=== PATIENT | female | born 1965 | race Caucasian/White ===

== ENCOUNTER → 2020-11-24 | Outpatient (CLI) | payer BC ==
[~2020-11-24] MED LIST: AMOX TR-K CLV1 EAC4 PO; ASPIRIN EC81 MG PO; CLOPIDOGREL75 MG PO; CRESTOR5 MG PO; CYCLOBENZAPRINE5 MG PO; FUROSEMIDE20 MG PO; HYDROCODON-ACE1 EAC2 PO; LANSOPRAZOLE30 MG PO; LEVOTHYROXINE150 MCG PO; METOPROLOL TART25 MG PO; NOVOLOG 10100 UNITS/ INJ; ONDANSETRON ODT4 MG PO; QVAR REDIHALE10.6 G1 INH; VITAMIN D21250 MCG PO
== END ==
LOC: SLEEP-COR 10:02
DX: G47.33 Obstructive sleep apnea (adult) (pediatric) (principal)
CPT/HCPCS: 95811

== ENCOUNTER → 2020-12-12 | Day surgery (SDC) | payer BC ==
[~2020-12-12] VITALS: Ht 160 cm; Wt 88.5 kg
[2020-12-12 06:53] LABS: HEMOGLOBIN 12.5 gm/dl (12.3-15.3); RED BLOOD COUNT 3.85 M/UL (4.00-5.10); WHITE BLOOD COUNT 11.1 K/UL (4.5-11.0)
== END | disposition home or self-care (01) ==
LOC: OR 05:15
PROVIDERS: Podiatrist Foot & Ankle Surgery
DX: S82.852A Displaced trimalleolar fracture of left lower leg, initial encounter for closed fracture (principal); E11.51 Type 2 diabetes mellitus with diabetic peripheral angiopathy without gangrene; I25.10 Atherosclerotic heart disease of native coronary artery without angina pectoris; K21.9 Gastro-esophageal reflux disease without esophagitis; G47.30 Sleep apnea, unspecified; J45.909 Unspecified asthma, uncomplicated; F32.A Depression, unspecified; E03.9 Hypothyroidism, unspecified; E78.5 Hyperlipidemia, unspecified; D68.2 Hereditary deficiency of other clotting factors; R00.0 Tachycardia, unspecified; I87.8 Other specified disorders of veins; X58.XXXA Exposure to other specified factors, initial encounter; Z99.89 Dependence on other enabling machines and devices; Z86.73 Personal history of transient ischemic attack (TIA), and cerebral infarction without residual deficits; Z79.4 Long term (current) use of insulin; Z79.2 Long term (current) use of antibiotics; Z80.1 Family history of malignant neoplasm of trachea, bronchus and lung; Z90.49 Acquired absence of other specified parts of digestive tract; Z79.01 Long term (current) use of anticoagulants; Z79.82 Long term (current) use of aspirin; Z79.899 Other long term (current) drug therapy
CPT/HCPCS: 73610; 76000; 82962; 85025; 86850; 86900; 86901; C1713; C1769; J1100; J1170; J1885; J2001; J2250; J2370; J2405; J2704; J2710; J2795; J3010; J3370; J7030; J7120

== ENCOUNTER → 2020-12-20 | Outpatient (CLI) | payer BC | LOC: KOH-I 15:03 | DX: S82.892D Other fracture of left lower leg, subsequent encounter for closed fracture with routine healing (principal) | CPT/HCPCS: 73610 ==

== ENCOUNTER → 2021-01-03 | Outpatient (CLI) | payer BC | LOC: KOH-I 11:27 | DX: M25.572 Pain in left ankle and joints of left foot (principal) | CPT/HCPCS: 73610 ==

== ENCOUNTER → 2021-01-29 | Outpatient (CLI) | payer BC | LOC: KOH-I 11:16 | DX: S82.52XD Displaced fracture of medial malleolus of left tibia, subsequent encounter for closed fracture with routine healing (principal) | CPT/HCPCS: 73610 ==

== ENCOUNTER → 2021-02-25 | Outpatient (CLI) | payer BC | LOC: KOH-I 11:32 | DX: S82.302A Unspecified fracture of lower end of left tibia, initial encounter for closed fracture (principal); S82.832A Other fracture of upper and lower end of left fibula, initial encounter for closed fracture | CPT/HCPCS: 73610 ==

== ENCOUNTER → 2021-03-21 | Outpatient (CLI) | payer BC | LOC: KOH-I 11:39 | DX: S82.852D Displaced trimalleolar fracture of left lower leg, subsequent encounter for closed fracture with routine healing (principal) | CPT/HCPCS: 73610 ==

== ENCOUNTER → 2021-04-11 | Outpatient (CLI) | payer BC | LOC: KOH-I 09:58 | DX: S82.852D Displaced trimalleolar fracture of left lower leg, subsequent encounter for closed fracture with routine healing (principal); X58.XXXD Exposure to other specified factors, subsequent encounter | CPT/HCPCS: 73610 ==

== ENCOUNTER → 2021-05-27 | Outpatient (CLI) | payer BC | LOC: KOH-I 10:41 | DX: S82.852A Displaced trimalleolar fracture of left lower leg, initial encounter for closed fracture (principal) | CPT/HCPCS: 73610; 73630 ==

== ENCOUNTER → 2021-09-09 | Outpatient (CLI) | payer BC | LOC: KOH-I 14:26 | DX: S82.842D Displaced bimalleolar fracture of left lower leg, subsequent encounter for closed fracture with routine healing (principal) | CPT/HCPCS: 73610 ==

== ENCOUNTER → 2021-11-11 | Outpatient (CLI) | payer BC | LOC: KOH-I 14:55 | DX: S82.842D Displaced bimalleolar fracture of left lower leg, subsequent encounter for closed fracture with routine healing (principal); X58.XXXD Exposure to other specified factors, subsequent encounter | CPT/HCPCS: 73610 ==